=== PATIENT | male | born 1975 | race Caucasian/White ===

== ENCOUNTER 2017-01-25 18:18 | Emergency (ER) | payer SELFPAY ==
--- NOTE | 2017-01-25 19:32 | RADIOLOGY REPORT (SQ) ---
EXAM DESCRIPTION: WRIST RIGHT 3 VIEWS COMPLETED DATE/TIME: 01/25/2017 7:21 pm REASON FOR STUDY: fall, wrist and thumb pain COMPARISON: None. NUMBER OF VIEWS: Three views. TECHNIQUE: AP, lateral, and oblique radiographic images acquired of the right wrist. LIMITATIONS: None. FINDINGS: MINERALIZATION: Normal. BONES: No acute fracture or dislocation. No worrisome bone lesions. Normal alignment. SOFT TISSUES: No soft tissue swelling. No foreign body. OTHER: No other significant finding. IMPRESSION: NEGATIVE STUDY OF THE RIGHT WRIST. NO RADIOGRAPHIC EVIDENCE OF ACUTE INJURY. TECHNICAL DOCUMENTATION: JOB ID: [id number] [employer]- All Rights Reserved
--- NOTE | 2017-01-25 19:35 | ER Document Report ---
HPI - HPI Patient complains to provider of: right wrist pain Context: 41 yo male c/o pain to right wrist, thumb and forearm x 1 month. pt works construction. reports he fell off a house about 1 month ago on outstretched arms. felt pain in right arm, got better after a few weeks but then thumb started to "get stuck". pt wore a thumb splint from the drug store with some relief. pt c/o increased pain today after working without the splint. pain radiates up to mid forearm. pain with thumb movement Associated Symptoms: None Exacerbated by: Movement Relieved by: Denies Similar symptoms previously: Yes Recently seen / treated by doctor: No - ROS Systems Reviewed and Negative: Yes All other systems reviewed and negative - CARDIOVASCULAR Cardiovascular: DENIES: Chest pain Past Medical History - General Information source: Patient - Social History Smoking Status: Current Every Day Smoker Chew tobacco use (# tins/day): No Frequency of alcohol use: None Drug Abuse: None Family History: Arthritis, CAD, CVA, Hyperlipidemia, Hypertension, Malignancy - Medical History Medical History: Negative Pulmonary Medical History: Reports: Hx Asthma - Childhood - Immunizations Immunizations up to date: Yes Hx Diphtheria, Pertussis, Tetanus Vaccination: Yes Vertical Provider Document - CONSTITUTIONAL Agree With Documented VS: Yes Exam Limitations: No Limitations General Appearance: WD/WN - INFECTION CONTROL TRAVEL OUTSIDE OF THE [place] IN LAST 30 DAYS: No - HEENT HEENT: Atraumatic, PERRLA - NECK Neck: Normal Inspection, Supple - RESPIRATORY Respiratory: Breath Sounds Normal, No Respiratory Distress O2 Sat by Pulse Oximetry: 99 - CARDIOVASCULAR Cardiovascular: Regular Rate, Regular Rhythm - MUSCULOSKELETAL/EXTREMETIES Musculoskeletal/Extremeties: Tender - right thenar area, no snuff box tenderness. no pain with axial loading of thumb. + tenderness along right radial border. + finklestein - NEURO Level of Consciousness: Awake, Alert, Appropriate - DERM Integumentary: Warm, Dry, No Rash Course - Re-evaluation Re-evalutation: 01/25/17 19:35 xray film and rad report reviewed. negative for fracture. results reviewed with patient. 01/25/17 19:36 H&P more c/w tendonitis. recommend RICE therapy, NSAID, f/u with primary care. pt stable for discharge - Vital Signs Vital signs: Temp Pulse Resp BP Pulse Ox 99 F 76 17 138/70 H 99 01/25/17 18:55 01/25/17 18:55 01/25/17 18:55 01/25/17 18:55 01/25/17 18:55 Discharge - Discharge Clinical Impression: Right wrist injury Qualifiers: Encounter type: initial encounter Qualified Code(s): S69.91XA - Unspecified injury of right wrist, hand and finger(s), initial encounter Condition: Stable Disposition: HOME, SELF-CARE Instructions: Tendonitis ([facility]), Ice & Elevation ([facility]), Ibuprofen (General) ([facility] ) Additional Instructions: Your xray is negative for fracture Your exam is consistent with tendonitis which is an inflammatory condition wear your wrist/thumb spling for comfort take anti inflammatory medication as prescribed follow up with your primary care if symptoms persist Prescriptions: Ibuprofen [Motrin 800 Mg Tablet] 800 mg PO Q6H #20 tablet Forms: Special Work Note
[2017-01-25 21:18] VITALS: BP 127/72
== END 2017-01-25 19:55 | disposition home or self-care (01) ==
LOC: ER 18:18
DX: M25.531 Pain in right wrist (principal); M79.631 Pain in right forearm; M79.644 Pain in right finger(s); F17.200 Nicotine dependence, unspecified, uncomplicated
CPT/HCPCS: 99283